=== PATIENT | female | born 1975 | race Caucasian/White ===

== ENCOUNTER 2016-04-24 08:45 | Day surgery (SDC) | payer BC ==
[~2016-04-24] VITALS: Ht 167.6 cm; Wt 125.0 kg
[2016-04-24] MEDS ORDERED: CYCLOBENZAPRINE10 MG PO (09:24)
[2016-04-24] MEDS ORDERED: INDERAL10 MG PO (09:25)
[2016-04-24] MEDS ORDERED: LOW-OGESTREL1 TAB PO (09:25)
[2016-04-24] MEDS ORDERED: PHENERGAN25 MG RC (09:26)
[2016-04-24] MEDS ORDERED: ESGIC TABLET1 TAB PO (09:26)
[2016-04-24] MEDS ORDERED: HYDROCODONE-APA1 TAB PO (09:27)
[2016-04-24] MEDS ORDERED: ADVIL PM CAPLET1 TAB PO (09:28)
[2016-04-24] MEDS ORDERED: BENADRYL25 MG PO (09:28)
[2016-04-24 09:37] VITALS: BP 143/93; Ht 167.6 cm; Wt 125.0 kg
[2016-04-24 09:39] LABS: HEMATOCRIT 45.9 % (36.0-48.0); HEMOGLOBIN 15.4 g/dL (12-16); MCH 30.3 pg (26.0-34.0); MCHC 33.6 g/dL (31.0-37.0); MCV 90.4 fL (80.0-100.0); MEAN PLATELET VOLUME 10.5 fL (7.4-10.4); RBC 5.08 10x6/uL (4.00-5.40); RDW 12.6 % (11.5-14.5); WBC 8.8 10x3/uL (4.8-10.8)
[2016-04-24 09:45] LABS: HCG URINE NEGATIVE (NEGATIVE)
--- NOTE | 2016-04-24 13:57 | NUR ---
1310-VOIDED WITHOUT DIFFICULTY 1340- IV D/C'D, PT TOLERATED. CATHETER INTACT 1350- DISCHARGE INSTRUCTIONS COMPLETED AND SIGNED. VERBALIZED UNDERSTANDING 1355- PT D/C'D VIA WHEELCHAIR WITH , CADY.
--- NOTE | 2016-06-18 10:17 | OP ---
PATIENT NAME: SENG BAKER MEDICAL RECORD: [id number] :77 LOCATION:D.OPS ADMISSION DATE: SURGEON: LAURO HARDEN MD DATE OF OPERATION: 04/24/2016 PREOPERATIVE DIAGNOSIS: Volume type gastroesophageal reflux. 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 Also, a Hill grade II esophagogastric junction. PROCEDURE: Esophagogastroduodenoscopy with antral and distal esophageal biopsies. SURGEON: Lauro Harden MD. RECREATIONAL VEHICLE RESORT MANAGER: None. BLOOD LOSS: Minimal. ANESTHESIA: IV sedation. COMPLICATIONS: None. Reason for the anesthesia staff being present during the procedure includes anxiety regarding the procedure. ENDOSCOPIC COURSE: The patient was conveyed to endoscopy suite electively on 04/24/2016. IV sedation was induced by the anesthesia staff. A bite block was inserted. A gastroscope was inserted into the mouth. It was advanced easily into the hypopharynx. The esophagus was easily intubated as were the stomach and duodenum. Upon withdrawal, retroflexed and angulus views were obtained. Antral biopsies were obtained. I then insufflated the stomach. With retroflexion, I examined the esophagogastric junction. It was a Hill grade II esophagogastric junction, which should be amenable to a TIF-2 therapy. I then unretroflexed the scope. I withdrew it into the distal esophagus. 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 The patient underwent 4 quadrant biopsies of the Kirk's. The endoscope was then withdrawn under direct vision. I will see the patient in my office in 2-3 weeks. We will discuss the TIF-2 procedure as well as the patient's Kirk's esophagus. TRANSINT:[id number] Voice Confirmation ID: [id number] DOCUMENT ID: [id number] LAURO HARDEN MD at 1017 CC: [id number] DICTATION DATE: 04/24/16 1229 SOFTWARE VALIDATION ENGINEER: 04/24/16 1358 [facility] 04/24/[address] [address]
--- NOTE | 2016-06-18 10:17 | HP ---
PATIENT: SENG BAKER MEDICAL RECORD: [id number] ACCOUNT: [id number] LOCATION:[facility] : 77 ADMISSION DATE: 04/24/16 HISTORY AND PHYSICAL EXAMINATION PREOPERATIVE DIAGNOSIS: Reflux. HISTORY OF PRESENT ILLNESS: This patient is to undergo EGD. This is in preparation for antireflux procedure, namely the TIF procedure. The risks, possible complications and alternatives to procedure were explained to the patient. She elects to proceed. Her reflux is intractable. She does have some volume reflux. She wakes up with a bitter taste in her mouth. She does not wake up with vomitus in her mouth. She does not wake up having regurgitated on a pillow. She does have some right lower quadrant abdominal pain. She is post-cholecystectomy. The patient does have postoperative nausea and vomiting and she is very anxious. Anxiety is the reason for the anesthesia staff being present during the procedure. SOCIAL HISTORY: Nonsmoker. PAST MEDICAL AND SURGICAL HISTORY: Anxiety, morbid obesity, , cholecystectomy, history of cystoscopy. REVIEW OF SYSTEMS: Negative for coronary artery disease or hypertension. Negative for CVA or seizures. ALLERGIES: TO CODEINE AND MORPHINE. HOME MEDICINES: Benadryl, Phenergan, Fiorcet, Advil, Flexeril, propranolol, control pills and Adderall. PHYSICAL EXAMINATION: GENERAL: The patient does not appear acutely ill. She does not appear chronically ill. VITAL SIGNS: Reviewed. HEAD: External ears appear normal. EYES: Extraocular movements are intact. NECK: Trachea is midline. CHEST: No intercostal retractions. PULMONARY: Nonlabored, no stridor. ABDOMEN: Tenderness in right upper quadrant without a Milligan sign. IMPRESSION: Intractable gastroesophageal reflux. PLAN: Will be EGD. TRANSINT:[id number] Voice Confirmation ID: [id number] DOCUMENT ID: [id number] CC: Ryanne Zaragoza APN HISTORY AND PHYSICAL [id number] SENG BAKER, TRISTIN LOREDO at 1017 CC: [id number] DICTATION DATE: 04/24/16 1207 ATLASSIAN ADMINISTRATOR: 04/24/16 1318 [facility] 04/24/16 [place] [address]
== END 2016-04-24 13:55 | disposition home or self-care (01) ==
LOC: D.OPS 08:45
PROVIDERS: Anesthesiology; Surgery
DX: K21.0 Gastro-esophageal reflux disease with esophagitis (principal); K22.70 Barrett's esophagus without dysplasia; K29.50 Unspecified chronic gastritis without bleeding

== ENCOUNTER → 2017-02-27 16:20 | Outpatient (CLI) | payer BC ==
[2016-04-24 09:37] VITALS: BMI 44.5
[~2017-02-27 16:20] MED LIST: ADVIL PM CAPLET1 TAB PO; BENADRYL25 MG PO; CYCLOBENZAPRINE10 MG PO; ESGIC TABLET1 TAB PO; HYDROCODONE-APA1 TAB PO; INDERAL10 MG PO; LOW-OGESTREL1 TAB PO; PHENERGAN25 MG RC
== END | disposition home or self-care (01) ==
LOC: D.CT 16:00
DX: R10.9 Unspecified abdominal pain (principal)

== ENCOUNTER → 2017-03-20 13:36 | Outpatient (CLI) | payer BC ==
[2016-04-24 09:37] VITALS: BMI 44.5
== END | disposition home or self-care (01) ==
LOC: D.US 13:36
DX: R10.31 Right lower quadrant pain (principal)

== ENCOUNTER 2017-12-30 05:20 | Day surgery (SDC) | payer BC ==
[2017-12-28 10:54] LABS: BASOPHILS 0.3 % (0-2); EOSINOPHILS 1.2 % (0-7); HEMATOCRIT 41.9 % (36.0-48.0); HEMOGLOBIN 14.8 g/dL (12-16); IMMATURE GRANULOCYTES 0.3 % (0-5); LYMPHOCYTES 26.8 % (15-50); MCH 30.5 pg (26.0-34.0); MCHC 35.3 g/dL (31.0-37.0); MCV 86.2 fL (80.0-100.0); MEAN PLATELET VOLUME 9.8 fL (7.4-10.4); MONOCYTES 6.6 % (2-11); NEUTROPHILS 64.8 % (40-80); PLATELET COUNT 169 10x3/uL (130-400); RBC 4.86 10x6/uL (4.00-5.40); RDW 12.6 % (11.5-14.5); WBC 7.3 10x3/uL (4.8-10.8)
[2017-12-28 11:09] LABS: ANION GAP 13.8 mmol/L (8-16); CALCIUM 8.6 mg/dL (8.5-10.1); CARBON DIOXIDE 26.7 mmol/L (21.0-32.0); CREATININE - SERUM 0.9 mg/dL (0.6-1.3); POTASSIUM - SERUM 3.5 mmol/L (3.5-5.1)
[~2017-12-30] VITALS: Ht 167.6 cm; Wt 140.6 kg
[~2017-12-30 05:20] MED LIST changes: +COMPAZINE10 MG PO; +IMITREX50 MG PO; +VERELAN360 MG PO
[2017-12-30] MEDS ORDERED: KLONOPIN0.5 MG PO (06:31)
[2017-12-30 06:42] VITALS: BP 133/86; Ht 167.6 cm; Wt 140.6 kg
== END 2017-12-30 10:50 | disposition home or self-care (01) ==
LOC: D.OPS 05:20 → D.PAN 07:30 → D.OPS 08:15
PROVIDERS: Orthopaedic Surgery
DX: S83.232A Complex tear of medial meniscus, current injury, left knee, initial encounter (principal); M22.42 Chondromalacia patellae, left knee; M13.862 Other specified arthritis, left knee; M22.2X2 Patellofemoral disorders, left knee; M67.52 Plica syndrome, left knee; Z01.812 Encounter for preprocedural laboratory examination

== ENCOUNTER 2018-03-25 17:03 | Observation (INO) | payer BC ==
[~2018-03-25] VITALS: Ht 167.6 cm; Wt 140.9 kg
--- NOTE | ~2018-03-25 | DS ---
PATIENT:SENG BAKER :77 MEDICAL RECORD: [id number] DISCHARGE SUMMARY ADMISSION DATE: 03/25/18 DISCHARGE DATE: 03/26/18 DATE OF SERVICE: 03/26/2018 DIAGNOSES: 1. Chest pain. 2. Hypertension. 3. Family history of coronary artery disease. 4. Normal cardiac catheterization this admission. HOSPITAL COURSE: Ms. Baker presents with chest pain; however, cardiac catheterization is normal. Discharged home with no cardiac followup needed, will follow up with her primary care physician for noncardiac etiology of chest pain workup. TRANSINT:[id number] Voice Confirmation ID: [id number] DOCUMENT ID: [id number] PABLO ROCK MD at 1108 CC: [id number] DICTATION DATE: 03/26/18910 SUPERINTENDENT GENERAL: 03/27/18 0020 DIS IN 03/26/[address] [address]
--- NOTE | ~2018-03-25 | HP ---
PATIENT: SENG BAKER MEDICAL RECORD: [id number] ACCOUNT: [id number] LOCATION:[address] : 77 ADMISSION DATE: 03/25/18 PCP: JANY CHEUNG MD HISTORY AND PHYSICAL EXAMINATION DIAGNOSES: 1. Chest pain. 2. Hypertension. 3. Family history of coronary artery disease. HISTORY: Mrs. Baker presents with ongoing chest discomfort. She saw Dr. Manning for chest discomfort. She is scheduled for a stress test tomorrow. Her EKG has ST-T changes anteriorly. She continues to have episodes of chest pain. She presents to the Emergency Room with this. PHYSICAL EXAMINATION: GENERAL APPEARANCE: Well-nourished, well-developed, appears stated age. Level of distress, comfortable. PSYCHIATRIC: Mental status, alert, normal affect. Orientation, oriented to time, place and person. EYES: Lids and conjunctiva, noninjected. No discharge, no pallor. ENT: Lips, teeth, gums, normal dentition. Oropharynx, no cyanosis, no pallor. NECK: Carotid arteries, bilateral normal upstroke, no bruits, no thrills. JUGULAR VEINS: No jugular venous pressure or distention. CERVICAL LYMPH NODES: Nontender, nonenlarged. THYROID: Not enlarged. Nontender. No nodules. LUNGS: Respiratory effort, unlabored. CHEST: Normal curvature. No thoracic deformity. No chest wall tenderness. Percussion, resonant. Auscultation, clear. No wheezes, no rales, no rhonchi. CARDIOVASCULAR: Precordial exam, nondisplaced. No heaves or pericardial thrills. Rate and rhythm, regular. Heart sounds, normal S1, normal S2. No S3, no gallop, no rub. Systolic murmur, not heard. Diastolic murmur, not heard. EXTREMITIES: No cyanosis, no edema. Peripheral pulses, full and equal in all extremities, except as noted. No bruits appreciated. ABDOMEN: Soft, nondistended. Normal aorta. No bruit. Nontender. No masses. Liver, nontender, no hepatomegaly. Spleen, nontender, no splenomegaly. MUSCULOSKELETAL: No joint tenderness. No joint swelling. No erythema. NEUROLOGICAL: Normal gait, normal strength, normal tone. SKIN: Warm and dry. OVERALL IMPRESSION: Chest pain, abnormal ECG, hypertension, and family history. We will admit. Load with Plavix and proceed with coronary angiography. Further care depends upon findings of the angiography. TRANSINT:[id number] Voice Confirmation ID: [id number] DOCUMENT ID: [id number] HISTORY AND PHYSICAL [id number] SENG BAKER JEFFREY MD at 0841 CC: [id number] DICTATION DATE: 03/25/181815 FOOT AND ANKLE SURGEON: 03/25/18 182 ADM IN [place] [id number] [place] [address]
--- NOTE | ~2018-03-25 | MORECARE ---
CASE MANAGEMENT DISCHARGE SUMMARY PATIENT: SENG BAKER CLAUDE UNIT: [id number] ADM DATE: 03/25/18 AGE: 42 : 77 SEX: F ROOM/BED: D.2493 AUTHOR: KELLY MARTINEZ PHYSICIAN: REFERRING PHYSICIAN: PABLO ROCK MD DATE OF SERVICE: 03/26/18 Discharge Plan Patient Name: SENG BAKER [facility] [facility] 1975 Planned Disposition: Home Anticipated Discharge Date: 03/26/18 Discharge Date: Expected LOS: 1 Initial Reviewer: [email or web address] Initial Review Date: 03/26/2018 Generated: 03/26/18 12:55 pm Patient Name: SENG BAKER Page [id number] at 1155 All edits/amendments must be made on the electronic document DICTATION DATE: 03/26/18 1155 DEMONSTRATOR SEWING TECHNIQUES: BERNARDINO 03/26/18 1155 RPT#: [id number] DC DATE: STATUS: ADM IN [facility] [address] [place] [address] END OF REPORT
--- NOTE | ~2018-03-25 | HEMODYNAMI ---
PATIENT:SENG BAKER MEDICAL RECORD: [id number] : 77 LOCATION:[facility] D.2123 ADMISSION DATE: 03/25/18 Generatedon:03/26/20188:46 Patient name: SENG BAKER Patient #: [id number] SSN: : 1975 Date of study: 03/26/2018 Page: Of Hemodynamic Procedure Report Patient Data Patient Demographics Procedure consent was obtained First Name: SENG Gender: Female Last Name: OLIVIA : 1975 [facility] Initial: CLAUDE Age: 42 year(s) Patient #: [id number] Race: Unknown Additional ID: [id number] Contact details Address: [address] [place] [address] State: [place] City: [place] Zip code: [address] Admission Admission Data Admission Date: 03/25/2018 Admission Time: 18:35 Admit Source: Other Room #: D.2123 Procedure Procedure Types Cath Procedure Diagnostic Procedure LHC LHC w/Coronaries Procedure Description Procedure Date Procedure Date: 03/26/2018 Procedure Start Time: 8:34 Procedure End Time: 8:43 Procedure Staff Name Function Bryan Crowe MD Performing Physician Martell Ford RT Monitor Abhi Johnson RT Scrub Greyson Baker RN Nurse Procedure Data Cath Procedure Fluoroscopy Diagnostic fluoroscopy Total fluoroscopy Time: 0.9 time: 0.9 min min Diagnostic fluoroscopy Total fluoroscopy dose: 531 dose: 531 mGy mGy Contrast Material Contrast Material Type Amount (ml) Isovue 300 36 Entry Location Entry Primary Successful Side Size Upsize Upsize Entry Closure Chaudhry ccessful Closure Location (Fr) 1 (Fr) 2 (Fr) Remarks Device Remarks Radial Right 6 Fr Mechanical artery Short Compression Estimated blood loss: 10 ml Diagnostic catheters Device Type Used For End Catheter Placement DIAGNOSTIC Parmelee 110cm 5 Procedure Fr catheter ([id number]) Procedure Complications No complications Procedure Medications Medication Administration Route Dosage Oxygen etCO2 Nasal cannula 2 l/min Heparin Flush Bag added to field 2 bags (1000units/500ml NS) 0.9% NaCl I.V. 100 ml/hr Radial Cocktail added to field 1 syringe (Verapomil 2mg/Nitro 400mcg/Heparin 1500units) Fentanyl I.V. 100 mcg Versed I.V. 1 mg Fentanyl I.V. 50 mcg Versed I.V. 1 mg Fentanyl I.V. 50 mcg Versed I.V. 1 mg Zofran I.V. 4 mg Fentanyl I.V. 100 mcg Versed I.V. 1 mg Radial Cocktail I.A. 1 syringe (Verapomil 2mg/Nitro 400mcg/Heparin 1500units) Hemodynamics Rest Heart Rate: 79 (bpm) Snapshots Pre Cath Intra NCS Post Cath Vital Signs Time Heart Resp SPO2 etCO2 NIBP (mmHg) Rhythm Pain Sedation Rate (ipm) (%) (mmHg) Status Level (bpm) 8:21:09 73 16 98 38.7 125/84(103) NSR 0 (11) 10(A) , No pain 8:25:29 81 16 94 37.9 122/66(103) NSR 0 (11) 10(A) , No pain 8:29:39 80 17 95 45.5 128/86(102) NSR 0 (11) 10(A) , No pain 8:33:53 86 16 98 39.4 115/84(90) NSR 0 (11) 10(A) , No pain 8:39:18 82 16 95 47.1 100/84(95) NSR 0 (11) 10(A) , No pain 8:43:10 75 13 78 23.5 114/82(107) NSR 0 (11) 10(A) , No pain Medications Time Medication Route Dose Verified Delivered Reason Notes Effectiveness by by 8:19:50 Oxygen etCO2 2 l/min Bryan Rubi Per Nasal Amrita Baker RN physician cannula 8:19:58 Heparin Flush added 2 bags Bryan Rubi used for Bag to Amrita Baker RN procedure (1000units/500ml field NS) 8:20:09 0.9% NaCl I.V. 100 Bryan Rubi Per ml/hr Amrita Baker RN physician 8:20:17 Radial Cocktail added 1 Bryan Rubi used for (Verapomil to syringe Amrita Baker RN procedure 2mg/Nitro field 400mcg/Heparin 1500units) 8:31:08 Fentanyl I.V. 100 mcg Bryan Rubi for sedation Amrita Baker RN 8:31:14 Versed I.V. 1 mg Bryan Rubi for sedation Amrita Baker RN 8:33:19 Fentanyl I.V. 50 mcg Bryan Rubi for sedation Amrita Baker RN 8:33:23 Versed I.V. 1 mg Bryan Rubi for sedation Amrita Baker RN 8:36:07 Radial Cocktail I.A. 1 Bryan Adams for (Verapomil syringe Taulou Crowe MD vasodilation 2mg/Nitro 400mcg/Heparin 1500units) 8:36:32 Fentanyl I.V. 50 mcg Bryan Rubi for sedation Amrita Baker RN 8:36:38 Versed I.V. 1 mg Bryan Rubi for sedation Amrita Baker RN 8:37:11 Zofran I.V. 4 mg Bryan Rubi for nausea Amrita Baker RN 8:37:38 Fentanyl I.V. 100 mcg Bryan Rubi for sedation Amrita Baker RN 8:37:42 Versed I.V. 1 mg Bryan Rubi for sedation Amrita Baker mortician helper Log Time Note 7:50:14 Martell Ford RT(R) sent for patient. Start room use. 7:54:09 Informed consent obtained and on chart 7:54:12 Admit Source: Other 7:54:30 Diagnostic Cath status Elective 7:54:32 Time tracking: Regular hours (M-F 7:00 - 5:00) 7:54:34 Plan of Care:Hemodynamics will remain stable., Cardiac rhythm will remain stable., Comfort level will be maintained., Respiratory function will remain adequate., Patient/ family verbilizes understanding of procedure., Procedure tolerated without complication., Recovers from procedure without complications.. 7:54:47 H&P Date Dictated: 03/25/2018 Within 30 days and on chart.. 7:55:24 Lab Result : BUN 11 mg/dl 7:55:24 Lab Result : Creatinine 0.7 mg/dl 7:55:24 Lab Result : Hemoglobin 14.5 g/dl 7:55:24 Lab Result : Hematocrit 42.8 % 7:55:27 Lab results completed and on chart. 8:08:48 Patient received from Med II to CCL 2 Alert and oriented. Tansferred to table in Supine position. 8:08:50 Warm blankets applied, and jasmyne hugger turned on for patient comfort. 8:08:50 Correct patient and procedure confirmed by team. 8:08:52 ECG and BP/O2 sat monitors applied to patient. 8:19:50 Oxygen 2 l/min etCO2 Nasal cannula was administered by Greyson Baker RN; Per physician; 8:19:58 Heparin Flush Bag (1000units/500ml NS) 2 bags added to field was administered by Greyson Baker RN; used for procedure; 8:20:00 Vital chart was started 8:20:09 0.9% NaCl 100 ml/hr I.V. was administered by Greyson Baker RN; Per physician; 8:20:17 Radial Cocktail (Verapomil 2mg/Nitro 400mcg/Heparin 1500units) 1 syringe added to field was administered by Greyson Baker RN; used for procedure; 8:27:02 Baseline sample Acquired. 8:27:07 Rhythm: sinus rhythm 8:27:08 Full Disclosure recording started 8:27:09 Pre-procedure instructions explained to patient. 8:27:10 Pre-op teaching completed and patient verbalized understanding. 8:27:12 Family in patients room. 8:27:13 Patient NPO since Midnight. 8:27:14 Is the patient allergic to Iodine/contrast media? No. 8:27:16 Is patient on blood thinner?Yes 8:27:18 ACC The patient was administered the following blood thiners within the last 24 hours: ACCPlavix 8:27:20 Patient diabetic? No. 8:27:23 Previous problem with sedation/anesthesia? No ? 8:27:24 Snore? Yes 8:27:25 Sleep apnea? No 8:27:26 Deviated septum? No 8:27:27 Opens mouth fully? Yes 8:27:28 Sticks out tongue? Yes 8:27:29 Airway obstruction? No ? 8:27:32 Dentures? No ? 8:27:33 Pre procedure: right dorsailis pedis pulse 1+ Palpable, but thready & weak; easily obliterated 8:27:35 Modified Wayne's test Ulnar < 7 seconds 8:27:37 Patient pain scale 0/10 ?. 8:27:41 IV patent on arrival in left forearm with 0.9% NaCl at [facility]. 8:27:46 Right Radial & Right Groin area was prepped with chlora-prep and draped in sterile fashion 8:27:47 Alarms reviewed by R. N. 8:27:48 Sharps counted by scrub and verified by R.N. 8:27:51 Use device set Radial Dx or PCI 8:27:54 Tegaderm 4 x 4 (1626W) opened to sterile field. 8:27:54 ACIST Manifold (99591) opened to sterile field. 8:27:55 ACIST Hand Control (98431) opened to sterile field. 8:27:57 ACIST Syringe (22593) opened to sterile field. 8:27:57 Medline Cath Pack ([id number]) opened to sterile field. 8:27:57 Bag Decanter (2002S) opened to sterile field. 8:27:58 DIAGNOSTIC WIRE .035 260cm J wire (536020) opened to sterile field. 8:27:58 MBrace Wrist Support ([id number]) opened to sterile field. 8:28:00 SHEATH 6FR Slender (28-5021) opened to sterile field. 8:30:46 --------ALL STOP TIME OUT------ 8:30:47 Final Timeout: patient, procedure, and site verified with staff and physician. All members of the team are in agreement. 8:30:49 Right Radial & Right Groin site verified by team. 8:30:51 Physical assessment completed. ASA score P 2 - A patient with mild systemic disease as per Bryan Crowe MD. 8:30:54 Sedation plan: IV Moderate Sedation Medication:Versed, Fentanyl 8:31:08 Fentanyl 100 mcg I.V. was administered by Greyson Baker RN; for sedation; 8:31:14 Versed 1 mg I.V. was administered by Gryeson Baker RN; for sedation; 8:33:19 Fentanyl 50 mcg I.V. was administered by Greyson Baker RN; for sedation; 8:33:23 Versed 1 mg I.V. was administered by Greyson Baker RN; for sedation; 8:34:03 Procedure started. 8:34:08 Local anesthetic to right radial artery with Lidocaine 2% by Bryan Crowe MD.INITIAL ACCESS ONLY 8:34:35 A 6 Fr Short sheath was inserted into the Right Radial artery 8:35:51 A DIAGNOSTIC Parmelee 110cm 5 Fr catheter (759123) was advanced over the wire and used for Procedure. 8:35:57 Zero performed for pressure channel P1 8:36:07 Radial Cocktail (Verapomil 2mg/Nitro 400mcg/Heparin 1500units) 1 syringe I.A. was administered by Bryan Crowe MD; for vasodilation; 8:36:32 Fentanyl 50 mcg I.V. was administered by Greyson Baker RN; for sedation; 8:36:38 Versed 1 mg I.V. was administered by Greyson Baker RN; for sedation; 8:36:43 LV angiography performed. 8:36:44 LV gram done using SORTO 8:36:49 EF : 50 % 8:36:53 Injector settings: Ml/sec: 7, Volume: 15, 8:37:11 Zofran 4 mg I.V. was administered by Greyson Baker RN; for nausea; 8:37:26 LCA angiography performed. 8:37:38 Fentanyl 100 mcg I.V. was administered by Greyson Baker RN; for sedation; 8:37:42 Versed 1 mg I.V. was administered by Greyson Baker RN; for sedation; 8:38:02 RCA angiography performed. 8:39:36 Catheter removed. 8:39:40 TR BAND Large ([id number]) opened to sterile field. 8:39:49 Sheath removed intact; hemostasis achieved with Mechanical Compression to the Right Radial artery. 8:39:51 Procedure ended.(Physican Out) 8:41:41 Fluoroscopy time 00.90 minutes. 8:41:45 Fluoroscopy dose: 531 mGy 8:41:45 Flurop Dose total: 531 8:42:12 Contrast amount:Isovue 300 36ml. 8:42:51 Sharps counted by scrub and verified by R.N. 8:42:54 TR band inflated with 8cc of air. 8:42:56 Insertion/operative site no bleeding no hematoma. 8:42:58 Post Procedure Pulses reassessed and unchanged 8:43:01 Post-procedure physical assessment completed. ASA score P 2 - A patient with mild systemic disease as per Bryan Crowe MD. 8:43:03 Post procedure rhythm: unchanged. 8:43:06 Estimated blood loss: 10 ml 8:43:08 Post procedure instruction explained to patient.Patient verbalizes understanding. 8:43:08 Patient needs reinforcement of post procedure teaching. 8:43:14 Procedure and supply charges have been captured, reviewed, submitted and are correct. 8:43:16 Procedure Complication : No complications 8:43:37 Vital chart was stopped 8:43:38 See physician's report for complete and final results. 8:43:41 Report given to PCU. 8:43:44 Patient transfered to PCU with Bed. 8:43:46 Procedure ended. 8:43:46 Full Disclosure recording stopped 8:43:51 End room use (Document Last) Device Usage Item Name Manufacture Quantity Catalog Hospital Part Current Minimal Lot# / Number Charge Number Stock Stock Serial# Code Tegaderm 4 3M 1 1626W [id number] [id number] [id number] 5 x 4 (1626W) ACIST Acist 1 99839 881953 555421 214523 5 Manifold Medical (52048) Systems Inc ACIST Hand Acist 1 55928 784465 452293 628912 5 Control Medical (10250) Systems Inc ACIST Acist 1 68533 562955 611228 358676 20 Syringe Medical (50081) Systems Inc Medline Medline 1 [id number] 887276 13284 531103 5 Cath Pack ([id number]) Bag Microtek 1 2001S 800986 93112 085959 5 Decanter Medical Inc. (2001S) DIAGNOSTIC [facility] 1 014913 887303 977260 898910 30 WIRE .035 260cm J wire (927753) MBrace Advanced 1 140-0250-00 813637 31855 011044 5 Wrist Vascular Support Dynamics (860355007) SHEATH 6FR Terumo 1 [id number] 944741 315084 566923 5 Slender (80-1060) DIAGNOSTIC Terumo 1 40-9763 535113 172381 686844 5 Parmelee 110cm 5 Fr catheter (448211) TR BAND Terumo 1 [id number] 480014 077466 014020 40 Large ([id number]) Signature Audit Arthur Stage Time Signature Unsigned Intra-Procedure 03/26/2018 Martell Ford 8:46:03 AM RT(R) Signatures Monitor : Martell Ford RT Signature : Date : Time : [address] [address]
[~2018-03-25 17:03] MED LIST changes: +KLONOPIN0.5 MG PO
[2018-03-25 18:09] LABS: BASOPHILS 0.3 % (0-2); EOSINOPHILS 1.1 % (0-7); HEMATOCRIT 42.8 % (36.0-48.0); HEMOGLOBIN 14.5 g/dL (12-16); IMMATURE GRANULOCYTES 0.2 % (0-5); MCH 30.3 pg (26.0-34.0); MCHC 33.9 g/dL (31.0-37.0); MCV 89.5 fL (80.0-100.0); MONOCYTES 6.2 % (2-11); NEUTROPHILS 65.2 % (40-80); RBC 4.78 10x6/uL (4.00-5.40); RDW 12.4 % (11.5-14.5); WBC 6.5 10x3/uL (4.8-10.8)
[2018-03-25 18:12] LABS: PLATELET COUNT 213 10x3/uL (130-400)
[2018-03-25 18:23] LABS: ALBUMIN 3.2 g/dL (3.4-5.0); ALKALINE PHOSPHATASE 70 U/L (46-116); ALT (SGPT) 43 U/L (10-68); BILIRUBIN - TOTAL 0.65 mg/dL (0.2-1.3); CALC OSMOLALITY 278 mosm/kg (275-300); CARBON DIOXIDE 29.6 mmol/L (21.0-32.0); CHLORIDE - SERUM 106 mmol/L (98-107); CREATININE - SERUM 0.7 mg/dL (0.6-1.3); GLUCOSE 87 mg/dL (74-106); SODIUM 141 mmol/L (136-145); UREA NITROGEN 11 mg/dL (7-18); eGFR NON AFRICAN AMERICAN > 90 mL/min (90-120)
[2018-03-25 18:35] LABS: HELICOBACTER PYLORI IGG NEGATIVE (NEGATIVE)
[2018-03-25 18:39] LABS: CKMB 0.7 U/L (0.0-3.6); CREATINE KINASE 138 UL (21-215); MAGNESIUM - SERUM 1.9 mg/dL (1.8-2.4); PRO BNP 14 pg/mL (0-125); TROPONIN-I < 0.017 ng/mL (0.000-0.060)
[2018-03-25] MEDS ORDERED: LISINOPRIL10 MG PO (20:17)
[2018-03-25 23:46] VITALS: BP 130/92; Ht 167.6 cm; Wt 140.9 kg
[2018-03-26 04:00] VITALS: BP 109/69
[2018-03-26 14:42] VITALS: BP 160/70
== END 2018-03-26 15:03 | disposition home or self-care (01) ==
LOC: D.ER 17:03 → D.M2 18:35 → D.EDHOLD 18:35 → OBSVTIME 18:35 → D.M2 19:44
PROVIDERS: Emergency Medicine
DX: R07.9 Chest pain, unspecified (principal); I10 Essential (primary) hypertension; Z82.49 Family history of ischemic heart disease and other diseases of the circulatory system

== ENCOUNTER → 2018-07-02 11:13 | Outpatient (CLI) | payer BC ==
[2018-03-25 23:46] VITALS: BMI 50.1
[~2018-07-02 11:13] MED LIST changes: +LISINOPRIL10 MG PO
== END | disposition home or self-care (01) ==
LOC: D.MRI 11:13
PROVIDERS: ATTEND Orthopaedic Surgery
DX: M25.561 Pain in right knee (principal)